=== PATIENT | female | born 1980 | race Caucasian/White ===

== ENCOUNTER 2022-07-04 09:18 | Outpatient (CLI) | payer BC, SELFPAY ==
--- NOTE | 2022-07-04 09:40 | ECG_ITS ---
Measurements Intervals [place] Rate: 87 P: 11 WA: 152 QRS: 15 QRSD: 68 T: 21 QT: 354 QTc: 428 Interpretive Statements SINUS RHYTHM CANNOT RULE OUT SEPTAL INFARCT, AGE INDETERMINATE INFERIOR INFARCT, AGE INDETERMINATE BASELINE ARTIFACT- I, II, III, AVR, AVL, AVF ABNORMAL ECG NO PREVIOUS ECG AVAILABLE FOR COMPARISON Electronically Signed On 07-04-2022 12:43:51 DAY CARE PROVIDER by Bo Sherman D.O.
[2022-07-04 10:08] LABS: Anion Gap 9 mmol/L (8-16); Blood Urea Nitrogen 6 mg/dL (7-17); Carbon Dioxide 29 mmol/L (22-30); Chloride 101 mmol/L (98-107); Estimated Glomerular Filt Rate > 60; Glucose 106 mg/dL (65-110); Potassium 3.2 mmol/L (3.4-5.0); Sodium 139 mmol/L (137-145)
== END 2022-07-04 09:19 | disposition home or self-care (01) ==
LOC: ANHSURGERY 09:25
PROVIDERS: Anesthesiology; Visit Provider Obstetrics & Gynecology
DX: I10 Essential (primary) hypertension (principal); R94.31 Abnormal electrocardiogram [ECG] [EKG]
CPT/HCPCS: 36415; 80048; 93005

== ENCOUNTER 2022-07-10 00:05 | Day surgery (SDC) | payer BC, SELFPAY ==
[2022-07-03 08:17] VITALS: BMI 33.0
--- NOTE | 2022-07-03 08:28 | PC.NURSE ---
Addendum entered by Gayathri Stevenson RN 07/03/22 08:37: PT INSTRUCTED FURTHER NOT TO TAKE VALSARTAN THE MORNING OF SURGERY Original Note: Report to the Outpatient Waiting Room, entrance under the [place] pavilion located off [facility], at time 0600 on date _07/10/22. Planned Procedure Time: 0730_. Time changes happen often and if your time is changed the preop area will call you the afternoon before. - You and your visitor will be asked to self-screen and do not enter if you have any COVID symptoms. - Only one visitor is requested with a max of two and NO children visitors are allowed at this time. - The patient visitor may be requested to leave or wait in car when not with patient due to distancing restrictions. - A mask is optional within the hospital. Patients may have clear liquids (water, carbonated beverages, clear teas, apple juice) until 3 hours prior to surgery with a maximum of 20 ounces. - No food from midnight until time of surgery - Infants may have breast milk until 4 hours before surgery, infant formula 6 hours prior to surgery. - Children will be allowed to drink immediately following surgery. If applicable, please bring a bottle or sippy cup to assist with drinking. Juice, water, soda, and popsicles are readily available. For infants on formula, please bring formula the day of surgery. Pacifiers are allowed. Take the following medications with a SIP of water the morning of surgery: _BUPROPION, ESCITALOPRAM, VALSARTAN___ Medications to discontinue per physician NONE___ Date to take last dose NONE Please no make-up, nail romanian, hairspray, perfume, deodorant, or body powder the day of surgery. No jewelry (including any body piercings) or valuables the day of surgery, leave them at home. Please take a shower or bath the night before, or the morning of, surgery with an antibacterial soap. Wear comfortable, loose fitting clothing. Children are encouraged to wear pajamas. - Jewelry must be removed prior to entering the operating room. Rings and piercings that are not removed may be cut off. - The hospital will not accept responsibility for valuables. - Please leave all valuables, including medications, at home the day of surgery. If you are going home after surgery, a licensed pile driver must drive you home. - NO public transportation without another adult if you receive anesthesia. - We recommend that an adult stay with you for 24 hours following discharge. - We also recommend that you do not drive, make important decision, drink alcoholic beverages, or take any drugs that were not prescribed by your health care provider for at least 24 hours after your discharge time. For Pediatric surgeries, we recommend two adults accompany the child home. Follow any additional instructions given to you from your surgeon. If you or anyone in your household have experienced Covid symptoms in the past week, please notify your surgeon or the nurse liaison at the phone number below for possible testing. Telephone instructions given to PATIENT_and asked if any additional questions and then verbalized understanding. Patient advised to call surgeon office or pre surgery nurse liaison [phone] if any additional questions.
[2022-07-10] VITALS (11 sets, daily range): BP systolic 90–122; BP diastolic 49–84; PULSE 78–100; RESP 13–20; TEMP 36.9; O2SAT 97–100
[2022-07-10] MEDS: ACETAMINOPHEN 500 MG TABLET 1000 MG PO (06:24)
--- NOTE | 2022-07-10 06:46 | WPDANESEPPF ---
Anes - Initial Pre Proc Eval Procedure: Operation Date: 07/10/22 07:30 Proposed Procedures p Laparoscopic Left Ovarian Cystectomy, Hysteroscopy with Irasema Endometrial Ablation - Jania Johnson MD Date/Time: 07/10/22 06:46 Surgeon: Jania Johnson MD Pre Op Diagnosis: Left Ovary Cyst Patient Data Age: 42 Gender: F Height: 1.57 m Weight: 82.7 kg Allergies Allergy/AdvReac Type Severity Reaction Status Date / Time Milk Containing Products Allergy Intermediate Congested Verified 07/10/22 06:17 Home Medications Medication Instructions Recorded Confirmed Type bupropion HCl 150 mg 24 hr tablet, 150 mg PO QAM 07/03/22 07/10/22 History extended release cetirizine 10 mg chewable tablet 10 mg PO DAILY PRN Congestion 07/03/22 07/10/22 History chlorthalidone 50 mg tablet 50 mg PO DAILY 07/03/22 07/10/22 History diphenhydramine HCl 25 mg capsule 25 mg PO DAILY PRN Congestion 07/03/22 07/10/22 History (Benadryl) escitalopram oxalate 10 mg tablet 10 mg PO DAILY 07/03/22 07/10/22 History valsartan 320 mg tablet 325 mg PO DAILY 07/03/22 07/10/22 History Patient hx anesthesia problems: none Family hx anesthesia problems: none Results Review: All pre-operative results and documents have been reviewed as part of the pre-operative evaluation. [facility] Past Medical History Medical History (Updated 07/10/22 @ 06:46 by Dhiraj Dickson MD) HTN (hypertension) Obesity Surgical History Surgical History (Updated 07/10/22 @ 06:46 by Dhiraj Dickson MD) History of section History of cholecystectomy Social History Social History Smoking status: Never smoker Alcohol intake: current Alcohol use details: 2 PER MONTH Substance use: never Living arrangements: with family Anes - Eval Final PreProcedure Day of Procedure 07/10/22 06:46 Patient weight: obese Heart: regular rate and rhythm Lungs: clear to auscultation Airway: Mallampati scale class 1 Neurological: alert and oriented Last oral intake: >/= 8 hours ASA classification: II Emergent: no Anesthetic plan: proceed Anesthesia type and monitoring: general ETT and standard monitoring Results Review: All pre-operative results and documents have been reviewed as part of the pre-operative evaluation. Informed Consent: The patient's anesthetic plan and its attendant risks and benefits were discussed with the patient/family/POA. Questions were solicited and answers provided to the satisfaction of the patient/family/POA.
[2022-07-10] MEDS: KETOROLAC 15 MG/ML VIAL (*BKC) IV PUSH (07:03)
[2022-07-10] MEDS: LACTATED RINGERS 1,000 ML 30 ML IV CONT ×2 (07:03→10:23)
--- NOTE | 2022-07-10 07:16 | WPDHPUPDATE1 ---
History and Physical Update Update Date/Time: 07/10/22 07:16 Left ovarian cystectomy History and Physical has been reviewed, including an updated exam of the patient. There are NO changes in the patient's condition. Risks, benefits, and alternatives have been discussed and questions answered. Patient agrees to proceed with procedure.
--- NOTE | 2022-07-10 10:33 | W.PM.PROC2 ---
Procedure Note - Detailed Date of Procedure 07/10/22 Pre-op Diagnosis Left Ovary Cyst, menorrhagia Post-op Diagnosis Same ( endometriosis -severe, pelvic adhesions) Procedure Performed Diagnostic laparoscopy Surgeon Jania Johnson MD Anesthesia General Indications menorrhagia, pelvic pain Findings severe endometriosis and adhesions throughout the pelvis. Large left ovarian cyst adherent to pelvic sidewall and posterior uterus . Normal vulva vagina cervix, length the endocervical canal, normal appearing endometrium. Description of Procedure The patient was taken to the operating room. She was prepped and draped in the dorsal lithotomy position after induction general anesthesia. A 5 mm incision was made with a scalpel on the abdominal skin in the left upper quadrant of the abdomen. A 5 mm trocar was inserted into the intra-abdominal cavity under direct visualization the scope. In the same fashion a 11 mm left lower quadrant trocar was inserted and a 11 mm infraumbilical trocar was inserted. pelvis was examined the above findings were noted. 1.5 hours of adhesiolysis was performed. This was required to free the ovary from the surrounding structures. The ureter was dissected out from the pelvic brim down to the bladder. No bleeding was difficult to control in the paracervical tissue on the left. The LigaSure cautery was used to make hemostatic. Pressure was reduced in the intra-abdominal cavity for a time. It was reapplied and there was some bleeding and we continued to work on the bleeding. That cycle was repeated and after the reduction of the pneumoperitoneum and the re-application of the pneumoperitoneum this time it was hemostatic. The ovarian cyst was ultimately resected along with the ovary and fallopian tube. It was placed in endobag and taken out the left lower quadrant trocar site. Hematoma was applied to the left adnexa and the paracervical tissue. The pneumo-Peritoneum was then reduced. The endometrial ablation was then performed. The vaginal portion the procedure was then performed. A speculum was placed in the vagina.? Cervix grasped with a tenaculum.? The cervix was dilated to about 1 cm.? The hysteroscope was inserted.? The above findings were noted.? Endometrial curettage was performed with a medium-size curette.? All surfaces of the endometrium were affected by the curettage.? The specimens were collected and sent to pathology.? Measurements were taken of the uterus and cervix.? The uterine length was then entered into the hand piece of the Irasema device.? The device was inserted into the intrauterine cavity.? The array of the device was expanded.? The balloon cuff was inflated.? A good seal was achieved.? The energy and safety cycles were initiated and completed.? The array was collapsed and the instrument was withdrawn after deflating the balloon cuff.? Hysteroscope was reinserted.? Above findings were noted. The hysteroscope was removed. The patient tolerated the procedure well.? The speculum and tenaculum were removed. the pneumoperitoneum was then reapplied and the pelvis was hemostatic. The pneumoperitoneum was reduced. The trocars were removed. Skin was closed with subcuticular 4 micro. The patient's incisions were covered with Dermabond. She was taken recovery room in stable condition. Sponge lap and needle counts were correct x2. Estimated Blood Loss -75.0 Urine Output -150.0 Complications No immediate complications Condition Stable Disposition Same day
[2022-07-10] MEDS: oxyCODONE HCL (*CRX) 5 MG TAB IR PO (11:55)
== END 2022-07-10 13:39 | disposition home or self-care (01) ==
PROVIDERS: PCP Family Medicine; Visit Provider Obstetrics & Gynecology
PROC: 0UDB8ZZ Extraction of Endometrium, Via Natural or Artificial Opening Endoscopic (ICD-10-PCS; CPT 58558; principal; 2022-07-10 07:30)
PROC: 0U5B8ZZ Destruction of Endometrium, Via Natural or Artificial Opening Endoscopic (ICD-10-PCS; CPT 58563; 2022-07-10 07:30)
DX: N92.0 Excessive and frequent menstruation with regular cycle (principal); N73.6 Female pelvic peritoneal adhesions (postinfective); N83.202 Unspecified ovarian cyst, left side; N80.30 Endometriosis of pelvic peritoneum, unspecified; N80.102 Endometriosis of left ovary, unspecified depth; N80.202 Endometriosis of left fallopian tube, unspecified depth; I10 Essential (primary) hypertension; E66.9 Obesity, unspecified; Z68.33 Body mass index [BMI] 33.0-33.9, adult
CPT/HCPCS: 58661; 58563; 88305; A9270; J1100; J1885; J2250; J2370; J2405; J2704; J2710; J3010; J7030; J7120

== ENCOUNTER 2025-01-27 11:18 | Outpatient (CLI) | payer BC, SELFPAY ==
--- OUTSIDE RECORDS SUMMARY | 2025-01-27 11:26 | XMS_ITS | Clinical Summary ---
Author Organization [facility] [place] Address [address] [place] [address] Phone Care Team Providers Care Labor Supervisor Name Role Phone Javier Bailon MD Primary Care Provider [phone] Allergies No known active allergies Medications No known medications Active Problems Problem Noted Date Diagnosed Date Family history of breast cancer 06/06/2010 Family history of ovarian cancer 06/06/2010 Transfusion of, blood Kidney stone Family History Medical History Relation Name Comments Other Maternal Grandfather diabete s Stroke Maternal Grandfather Stroke Maternal Grandmother Breast Cancer Other 1 (p) great aunt Ovarian Cancer Other 1 (p) great aunt Breast Cancer Other 2 (p) 2nd cousin paternal 2nd cousin 40s Breast Cancer Other 3 paternal 2nd c ousin 30s Lung Cancer Paternal Grandfather Other Paternal Grandmother diabete s Relation Name Status Comments Maternal Grandfather Maternal Grandmother Other 1 (p) great aunt Other 2 (p) 2nd cousin Alive Other 3 Alive Paternal Grandfather Paternal Grandmother Social History Tobacco Use Types Packs/Day Years Used Date Smoking Tobacco: Never Alcohol Use Standard Drinks/Week Comments Yes 0 (1 standard drink = 0.6 oz pur e alcohol) rarely Comments No Sex and Gender Information Value Date Recorded Sex Assigned at Not on file Legal Sex Female 5:57 AM HOT BOX OPERATOR Gender Identity Not on file Sexual Orientation Not on file Occupation Industry Job Start Date Job End Date Not on file Not on file Not on file Not on file Last Filed Vital Signs Vital Sign Reading Time Taken Comments Blood Pressure 124/66 06/06/2010 10:26 AM HOT BOX OPERATOR Pulse - - Temperature - - Respiratory Rate - - Oxygen Saturation - - Inhaled Oxygen Concentration - - Weight 73.5 kg (162 lb) 06/06/2010 10:26 AM HOT BOX OPERATOR Height 157.5 cm (5' 2) 06/06/2010 10:26 AM HOT BOX OPERATOR Body Mass Index 29.63 06/06/2010 10:26 AM HOT BOX OPERATOR Plan of Treatment Health Maintenance Due Date Last Done Comments HPV VACCINES (1 - 3-dose series) 1997 DTAP/TDAP/TD VACCINES (1 - Tdap) 2001 HEPATITIS B VACCINES (1 of 3 - 19+ 3-dose series) 01/29 HPV/Cotest (21-29) 2003 CERVICAL CANCER SCREENING 02/24/2012 HPV/Cotest (30-65) 02/24/2012 PAP SMEAR 02/24/2012 BREAST CANCER SCREENING 2022 06/06/2010 INFLUENZA VACCINE (#1) 2025 Procedures Procedure Name Priority Date/Time Associated Diagnosis Comments MAMMO DIAGNOSTIC BILATERAL W OR WO CAD Routine 06/06/2010 11:34 AM HOT BOX OPERATOR Diffuse cystic mastopathy Family history of breast cancer from Last 3 Months or Most Recently Relevant to Health Maintenance Results * MAMMO DIGITAL DIAG BILAT (06/06/2010 11:34 AM HOT BOX OPERATOR) Anatomical Region Laterality Modality Breast Bilateral Mammography Narrative 06/08/2010 8:46 AM HOT BOX OPERATOR BILATERAL FULL FIELD DIGITAL DIAGNOSTIC MAMMOGRAMS WITH COMPUTER AIDED DETECTION, 06/06/2010 History: Palpable abnormality in the left breast. Technique: Bilateral full field digital diagnostic mammograms were obtained. CAD was utilized. Comparison is made with the previous ultrasound from Imaging [facility] dated April 2010. Breast Composition: Heterogeneously dense, which lowers the sensitivity of mammography. Findings: No dominant masses, areas of asymmetry or suspicious clustered microcalcifications are identified within either breast. CAD was utilized. OVERALL ASSESSMENT: BI-RADS Category: 1, negative. Recommendation: Clinical followup is recommended for the patient's palpable abnormality in the left breast which has no mammographic correlate. Procedure Note Claudia Reeves - 06/08/2010 BILATERAL FULL FIELD DIGITAL DIAGNOSTIC MAMMOGRAMS WITH COMPUTER AIDEDDETECTION, 06/06/2010 History: Palpable abnormality in the left breast. Technique: Bilateral full field digital diagnostic mammograms wereobtained. CAD was utilized. Comparison is made with the [facility]rasound from [facility] dated April 2010. Breast Composition: Heterogeneously dense, which lowers the sensitivity ofmammography. Findings: No dominant masses, areas of asymmetry or suspicious clusteredmicrocalcifications are identified within either breast. CAD was utilized. OVERALL ASSESSMENT: BI-RADS Category: 1, negative. Recommendation: Clinical followup is recommended for the patient'spalpable abnormality in the left breast which has no mammographiccorrelate. us Vaishali Hicks MD MAMMO ORDERABLES Final Result from Last 3 Months or Most Recently Relevant to Health Maintenance Insurance [facility] BLUE ACCESS/TRUE BLUE PPO Care Teams Labor Supervisor Relationship Specialty Start Date End Date Javier Bailon MD [address] [place] [id number] PCP - General 06/20/15
--- OUTSIDE RECORDS SUMMARY | 2025-01-27 11:26 | XMS_ITS | Clinical Summary ---
Author Organization [facility] Address [address] [place] [address] Care Team Providers Care River Driver Name Role Phone Michelle Lassiter MD Primary Care Provider [phone] Social History Tobacco Use Types Packs/Day Years Used Date Smoking Tobacco: Never Assessed Comments Unknown Sex and Gender Information Value Date Recorded Sex Assigned at Female 07/21/2024 12:16 PM OCCUPATIONAL THERAPY DEPARTMENT CHAIR Legal Sex Female 5:55 PM CDT Gender Identity Not on file Sexual Orientation Not on file Plan of Treatment Health Maintenance Due Date Last Done Comments Cervical Cancer Screening Pa p Smear (Age 30 to 64) Every 3 Years 1982 Annual Physical 1985 Hepatitis C 02/24/2000 DTaP, Tdap and Td Vaccines ( 1 - Tdap) 2001 Hepatitis B Vaccines (1 of 3 - 19+ 3-dose series) 2001 HPV Vaccines (1 - 3-dose SCD M series) 2009 Cervical Cancer Screening Pa p with HPV Testing (Age 30 to 64) Every 5 Years 02/24/2012 Cervical Cancer Screening with HPV 02/24/2012 Mammogram Screening 2022 COVID-19 Vaccine (2023-2 5 season) 2024 Meningococcal B Vaccine Aged Out No l onger eligible based on patient's age to complete this topic Meningococcal Vaccine Aged Out No magali marie eligible based on patient's age to complete this topic Pneumococcal Vaccine: Pediat rics (0 to 5 Years) and At-Risk Patients (6 to 49 Years) Aged Out No longer eligible b ased on patient's age to complete this topic RSV Immunizations Under 20 Months Aged Out No longer eligible based on patient's age to complete this topic Insurance [facility] Care Teams River Driver Relationship Specialty Start Date End Date Michelle Lassiter MD [address] [place] [phone] PCP - General FAMILY PRACTICE 07/06/20
--- NOTE | 2025-01-27 11:38 | ECG_ITS ---
Test Date: 2025-01-27 11:52:24 Measurements Intervals [place] Rate: 94 P: 29 TN: 176 QRS: 23 QRSD: 80 T: 43 QT: 380 QTc: 477 Interpretive Statements SINUS RHYTHM LOW QRS VOLTAGE IN PRECORDIAL LEADS CANNOT R/O SEPTAL INFARCT, AGE INDETERMINATE INFERIOR INFARCT, AGE INDETERMINATE BORDERLINE ST-T WAVE ABNORMALITY- HIGH LATERAL LEADS BASELINE ARTIFACT- I, II, III, AVR, AVL, V3-V6 ABNORMAL ECG No previous ECG available for comparison Electronically Signed On 01-28-2025 06:27:44 CDT by Bo Sherman D.O.
[2025-01-27 12:21] LABS: Alanine Aminotransferase 35 U/L (6-35); Albumin Level 4.4 g/dL (3.5-5.1); Alkaline Phosphatase 61 U/L (38-126); Anion Gap 10 mmol/L (4-12); Aspartate Amino Transferase 38 U/L (14-36); Bilirubin,Total 0.5 mg/dL (0.2-1.3); Blood Urea Nitrogen 11 mg/dL (7-17); Calcium 9.0 mg/dL (8.4-10.2); Carbon Dioxide 23 mmol/L (22-30); Chloride 101 mmol/L (98-107); Estimated Glomerular Filt Rate > 60; Glucose 150 mg/dL (65-110); Potassium 3.0 mmol/L (3.4-5.0); Sodium 134 mmol/L (137-145); Total Protein 7.2 g/dL (6.3-8.2)
== END 2025-01-27 11:19 | disposition home or self-care (01) ==
LOC: ANHSURGERY 11:23
PROVIDERS: PCP Physician Assistant; Visit Provider Obstetrics & Gynecology
DX: R10.2 Pelvic and perineal pain (principal); Z79.899 Other long term (current) drug therapy; I10 Essential (primary) hypertension
CPT/HCPCS: 36415; 80053; 86850; 86900; 86901; 93005

== ENCOUNTER 2025-02-02 02:12 | Day surgery (SDC) | payer BC, SELFPAY ==
[2025-01-26 08:58] VITALS: BMI 36.6
--- NOTE | 2025-01-26 09:00 | PC.NURSE ---
Report to the Outpatient Waiting Room, entrance under the green pavilion located off [facility], at time _0830_ on date _[id number]_. Planned Procedure Time: _1030_.? Time changes happen often and if your time is changed the preop area will call you the afternoon before. - You and your visitor will be asked to self-screen and do not enter if you have any COVID symptoms. Please call surgeon if you need to reschedule. - A mask is optional within the hospital at this time. Patients may have clear liquids (water, carbonated beverages, clear teas, apple juice) until 3 hours prior to surgery with a maximum of 20 ounces. - No food from midnight until time of surgery and no smoking, or chewing tobacco (or any form of nicotine). No chewing gum, candy or mints. Take only the following medications with a SIP of water on the morning of surgery: ___Bupropion, Escitalopram and if needed Hydrocodone for pain.____ DO NOT STOP ANY OF YOUR OTHER PRESCRIPTION MEDICATIONS PRIOR TO SURGERY EXCEPT THE FOLLOWING Hold all vitamins and supplements for 3 days per anesthesiologist. Medications to discontinue per physician Date to take last dose Please no make-up, nail setswana, hairspray, perfume, deodorant, or body powder the day of surgery.? No jewelry (including any body piercings) or valuables the day of surgery, leave them at home.? Please take a shower or bath the night before, or the morning of, surgery with an antibacterial soap.? Wear comfortable, loose fitting clothing.? - Jewelry must be removed prior to entering the operating room.? Rings and piercings that are not removed may be cut off. - The hospital will not accept responsibility for valuables.? - Please leave all valuables, including medications, at home the day of surgery. If you are going home after surgery, a licensed truck driver rubbish collector must drive you home.? - NO public transportation without another adult if you receive anesthesia. - We recommend that an adult stay with you for 24 hours following discharge. - We also recommend that you do not drive, make important decision, drink alcoholic beverages, or take any drugs that were not prescribed by your health care provider for at least 24 hours after your discharge time. Follow any additional instructions given to you from your surgeon. Telephone instructions given to __Kristan___and asked if any additional questions and then verbalized understanding. Patient advised to call surgeon office or pre surgery nurse liaison [phone] if any additional questions.
[2025-02-02] VITALS (14 sets, daily range): BP systolic 105–132; BP diastolic 64–92; PULSE 64–87; RESP 14–20; TEMP 36.2–36.7; O2SAT 96–100
--- OUTSIDE RECORDS SUMMARY | 2025-02-02 02:17 | XMS_ITS | Clinical Summary ---
Author Organization [facility] Address [facility] [place] [address] Care Team Providers Care Motion Picture Equipment Machinist Name Role Phone Michelle Lassiter MD Primary Care Provider [phone] Social History Tobacco Use Types Packs/Day Years Used Date Smoking Tobacco: Never Assessed Comments Unknown Sex and Gender Information Value Date Recorded Sex Assigned at Female 07/21/2024 12:16 PM DELIVERY ROUTE DRIVER Legal Sex Female 5:55 PM CDT Gender [...] patient's age to complete this topic Insurance [facility] Care Teams Motion Picture Equipment Machinist Relationship Specialty Start Date End Date Michelle Lassiter MD [address] [place] [phone] PCP - General FAMILY PRACTICE 07/06/20
--- OUTSIDE RECORDS SUMMARY | 2025-02-02 02:17 | XMS_ITS | Clinical Summary ---
Author Organization [facility] on [place] Address [address] [place] [address] Phone Care Team Providers Care Global Program Manager Name Role Phone Javier Bailon MD Primary Care Provider [phone] Allergies No known active allergies Medications No [...] on file Legal Sex Female 5:57 AM TRIAL LAWYER Gender Identity Not on file Sexual Orientation Not on file Occupation Industry Job Start Date Job End Date Not on file Not on file Not on file Not on file Last Filed Vital Signs Vital Sign Reading Time Taken Comments Blood Pressure 124/66 06/06/2010 10:26 AM TRIAL LAWYER Pulse - - Temperature - - Respiratory Rate - - Oxygen Saturation - - Inhaled Oxygen Concentration - - Weight 73.5 kg (162 lb) 06/06/2010 10:26 AM TRIAL LAWYER Height 157.5 cm (5' 2) 06/06/2010 10:26 AM TRIAL LAWYER Body Mass Index 29.63 06/06/2010 10:26 AM TRIAL LAWYER Plan of Treatment Health Maintenance Due Date [...] OR WO CAD Routine 06/06/2010 11:34 AM TRIAL LAWYER Diffuse cystic mastopathy Family history of breast cancer from Last 3 Months or Most Recently Relevant to Health Maintenance Results * MAMMO DIGITAL DIAG BILAT (06/06/2010 11:34 AM TRIAL LAWYER) Anatomical Region Laterality Modality Breast Bilateral Mammography Narrative 06/08/2010 8:46 AM TRIAL LAWYER BILATERAL FULL FIELD DIGITAL DIAGNOSTIC MAMMOGRAMS WITH COMPUTER AIDED DETECTION, 06/06/2010 History: Palpable abnormality in the left breast. Technique: Bilateral full field digital diagnostic mammograms were obtained. CAD was utilized. Comparison is made with the previous ultrasound from Imaging [facility] dated April 2010. Breast Composition: Heterogeneously [...] Comparison is made with the [facility]ultrasound from [facility] dated April 2010. Breast Composition: Heterogeneously [...] Most Recently Relevant to Health Maintenance Insurance [facility] BLUE ACCESS/TRUE BLUE PPO Care Teams Global Program Manager Relationship Specialty Start Date End Date Javier Bailon MD [address] [place] [phone] PCP - General 06/20/15
--- NOTE | 2025-02-02 06:48 | WPDANESEPPF ---
Anes - Initial Pre Proc Eval Procedure: Operation Date: 02/02/25 10:30 Proposed Procedures p Robotic Assisted Hysterectomy with Bilateral Salpingo-oophorectomy - Rohit Johnson MD Date/Time: 02/02/25 06:48 Surgeon: Rohit Johnson MD Pre Op Diagnosis: Pelvic Pain Patient Data Age: 44 Gender: F Height: 1.57 m Weight: 90.9 kg Allergies Allergy/AdvReac Type Severity Reaction Status Date / Time Milk Containing Products Allergy Intermediate Congested Verified 02/02/25 09:10 (Dairy) (Milk Containing Products) Home Medications ?Medication ?Instructions ?Recorded ?Confirmed ?Type bupropion HCl 150 mg 24 hr tablet, 150 mg PO QAM 07/03/22 02/02/25 History extended release cetirizine 10 mg chewable tablet 10 mg PO DAILY PRN Congestion 07/03/22 01/26/25 History chlorthalidone 50 mg tablet 50 mg PO DAILY 07/03/22 02/02/25 History diphenhydramine HCl 25 mg capsule 25 mg PO DAILY PRN Congestion 07/03/22 01/26/25 History (Benadryl) escitalopram oxalate 10 mg tablet 10 mg PO DAILY 07/03/22 02/02/25 History valsartan 320 mg tablet 320 mg PO DAILY 07/03/22 02/02/25 History hydrocodone 5 mg-acetaminophen 325 1 tablet PO Q4H PRN pain #20 tabs 07/10/22 01/26/25 Rx mg tablet montelukast 10 mg tablet 10 mg PO HS 01/26/25 02/02/25 History Patient hx anesthesia problems: none Family hx anesthesia problems: none Results Review: All pre-operative results and documents have been reviewed as part of the pre-operative evaluation. [facility] Past Medical History Medical History (Updated 02/02/25 @ 09:16 by Israel Damon DO) Pre-diabetes HTN (hypertension) Obesity Surgical History Surgical History (Updated 07/10/22 @ 06:46 by Dhiraj Dickson MD) History of section History of cholecystectomy Social History Social History Smoking status: Never smoker Alcohol intake: current Alcohol use details: 2 PER MONTH Substance use: never Living arrangements: with family Spiritual care concerns: No Anes - Eval Final PreProcedure Day of Procedure 02/02/25 06:48 Patient weight: obese Heart: regular rate and rhythm Lungs: clear to auscultation Airway: Mallampati scale class II Neurological: alert and oriented Last oral intake: >/= 8 hours ASA classification: III Emergent: no Anesthetic plan: proceed Anesthesia type and monitoring: general ETT and standard monitoring Results Review: All pre-operative results and documents have been reviewed as part of the pre-operative evaluation. Informed Consent: The patient's anesthetic plan and its attendant risks and benefits were discussed with the patient/family/POA. Questions were solicited and answers provided to the satisfaction of the patient/family/POA.
[2025-02-02] MEDS: ACETAMINOPHEN 500 MG TABLET 1000 MG PO ×3 (08:55→23:40)
[2025-02-02] MEDS: LACTATED RINGERS 1,000 ML 30 ML IV CONT ×2 (09:00→13:12)
[2025-02-02] MEDS: KETOROLAC 15 MG/ML VIAL (*BKC) IV PUSH (09:05)
[2025-02-02 09:13] LABS: BEDSIDEPREGUCG Negative (Negative)
--- NOTE | 2025-02-02 09:56 | WPDHPUPDATE1 ---
History and Physical Update Update Date/Time: 02/02/25 09:56 History and Physical has been reviewed, including an updated exam of the patient. There are NO changes in the patient's condition. Risks, benefits, and alternatives have been discussed and questions answered. Patient agrees to proceed with procedure.
[2025-02-02] MEDS: ceFAZolin 2 GM in SODIUM CHLORIDE 0.9% IV 50 ML 100 ML IVPB (10:00)
--- NOTE | 2025-02-02 12:22 | S_PTH ---
PATIENT: Kristan Monzon LOC: [facility] U#:[id number] AGE/SX: 44/F ROOM: RE02/02/[address]: Rohit Johnson MD : 1980 BED: DIS: 02/03/2025 SPEC #: [id number] RECD: 02/02/25 14:24 STATUS: JAZMIN REDagoberto #: [id number] FARA: 02/02/25 12:[address]: Rohit Johnson DEPT: [facility] Surgical RECD BY: Sylwia Brown ENTERED: 02/02/25 14:24 SP TYPE: Surgical OTHR DR: Kimberly Beach, PAJohn Tissues: A - Uterus Procedures: Hematoxylin and Eosin Stain Gross and Microscopic Level 5
[2025-02-02] MEDS: METHYLENE BLUE 0.5% INJ 10 ML AMPULE IRRIGATION (12:34)
--- NOTE | 2025-02-02 13:19 | P.OP_ITS ---
Procedure Note - Detailed Date of Procedure 02/02/25 Pre-op Diagnosis Pelvic Pain Post-op Diagnosis Same (Endometriosis) Procedure Performed Robot assisted Total hysterectomy with bilateral salpingectomy. Adhesiolysis- 1.5 hours Surgeon Rohit Johnson MD Anesthesia General Indications heavy vaginal bleeding, pelvic pain Findings Dense adhesions of the bilateral adnexa, parametria and posterior cul-de-sac. Endometrial implants throughout the pelvis. Absent left tube and ovary. Right tube and ovary with scarring and endometriosis. Description of Procedure This patient was taken to the operating room. She was prepped and draped in the dorsal lithotomy position after induction of general anesthesia. The uterine manipulator and Nellie cup were placed. This was done with a speculum and tenaculum. The speculum was placed. The cervix was grasped with a tenaculum. The stay sutures were placed at 3 and 9:00 a.m.. The stay sutures of 0 Vicryl were tied to the appropriately Size scope after it was slipped around the cervix.. The tip of the THEODORE manipulator was placed in the intrauterine cavity. The cup was slid into place around the cervix and into the fornices. It was locked into place. The sutures were then wrapped around the handle and tied under tension. A 8 mm skin incision was made in the left upper quadrant the abdomen. a 5 mm Visiport trocar was inserted into abdominal cavity and pneumoperitoneum was achieved. A 8 mm supraumbilical incision was made and a 8 mm trocar was inserted into the intrauterine cavity under direct visualization of the scope. an 8 mm incision was made in the right upper quadrant of the abdomen and an 8 mm robotic trocar was placed the inter uterine cavity under direct visualization the scope. An 11 mm trocar was inserted in the right upper quadrant of the abdomen rectal is a cystoscope after an incision was made there as well. The robot was docked. Electronic Orientation of the robot was performed. 1.5 hour adhesiolysis was performed with sharp and blunt dissection using cautery and vessel sealer. This was done throughout the pelvis and different portions of the case. Bilateral ureteral lysis was performed. This was done from the pelvic brim down to the uterine artery. This was done with careful dissection using sharp and blunt dissection.Bilateral salpingo-oophorectomy was performed. The bilateral infundibulopelvic ligaments were cauterized thoroughly and transected after visualization of the ureter passing over the pelvic brim. In stepwise fashion around the ovary the mesosalpinx was cauterized transected. The Fallopian tube tissue/ mesosalpinx was cauterized transected a stepwise fashion medially to the cornua of the uterus. the tube was transected at the cornua and cauterized thoroughly. The bilateral tubes and ovaries were taken out through the large air lock port. Then In a stepwise fashion along the lateral aspects of the uterus the round ligament and broad ligaments were cauterized transected down to the level of the uterine arteries. A bladder flap was created in the bladder was moved distally to the end of the cervix and over the Nellie cup. The bilateral uterine arteries were cauterized and transected. Colpotomy was then performed. In a circumferential fashion the vagina was transected using unipolar cautery. The incision was made down on the Nellie cup. The uterus and cervix were taken out through the vagina. A pneumo occluder was placed in the vagina. The vaginal cuff was closed with a 0 V lock suture in a running fashion. The pelvis was irrigated with copious amounts antibiotic irrigation. The ureters were again examined and found to be intact and flowing freely under the uterine arteries into the bladder. The bladder was intact. It was examined directly. Cystoscopy was performed after administration of methylene blue. The cystoscope was inserted. Bladder was distended with fluid. The ureteric meatus was observed bilaterally. Blue fluid was seen to egress bilaterally. The bladder was drained and the cystoscope was withdrawn. The vagina was irrigated with Betadine solution after removal of the Pneumo occluder. the trocars were removed after the robot was undocked. The skin was closed with subacute or Dermabond. The patient was taken to recovery room. She was stable condition. Sponge lap and needle counts were correct x2. Estimated Blood Loss 125 Urine Output 800 Drains Yes Packing No Pathology Yes Complications No immediate complications Condition Stable Disposition Floor
[2025-02-02] MEDS: fentaNYL CITRATE INJ (*CRX) 100 MCG/2 ML VIAL 25 MCG IV PUSH ×2 (13:59→14:02)
--- NOTE | 2025-02-02 15:00 | ADMGEN ---
This patient, Kristan Monzon, was admitted to 2 Medical Room 240-. Patient/family oriented to hospital policies and general routines including ID bracelet, bed and alarms, visiting hours, pain management, procedures, bathroom and other care routines, personal items, smoking policy, room service/diet, and visiting hours. Information on how to activate the Rapid Response Team has been discussed. Patient/Family are encouraged to report perceived risks to care and to ask questions if they do not understand what they are told or what they should do.
[2025-02-02] MEDS: DEXTROSE 5%/0.45% SOD CHL 1,000 ML 125 ML IV CONT (15:46)
[2025-02-02] MEDS: SIMETHICONE 80 MG TAB.CHEW PO (16:16)
[2025-02-02] MEDS: KETOROLAC 30 MG/ML VIAL (*BKC) IV PUSH ×2 (17:14→23:40)
[2025-02-02] MEDS: MONTELUKAST SODIUM 10 MG TABLET PO (20:17)
[2025-02-02] MEDS: HYDROcodone/acetaminophen (*CRX) 5-325 MG TABLET 1 TAB PO (20:22)
[2025-02-03 00:22] VITALS: BP 107/53; PULSE 88; RESP 16; TEMP 36.5; O2SAT 94
[2025-02-03] MEDS: KETOROLAC 30 MG/ML VIAL (*BKC) IV PUSH (06:12)
[2025-02-03] MEDS: ACETAMINOPHEN 500 MG TABLET 1000 MG PO ×2 (06:12→11:14)
[2025-02-03 06:40] VITALS: BP 105/59; PULSE 61; RESP 16; TEMP 36.6; O2SAT 97
[2025-02-03] MEDS: SIMETHICONE 80 MG TAB.CHEW PO ×2 (07:54→11:15)
[2025-02-03] MEDS: DOCUSATE SODIUM 100 MG CAPSULE PO (07:55)
[2025-02-03 07:57] VITALS: RESP 16; O2SAT 97
[2025-02-03 11:00] VITALS: BP 109/64; PULSE 84; RESP 16; TEMP 36.4; O2SAT 98
[2025-02-03] MEDS: IBUPROFEN 600 MG TABLET PO (11:14)
[2025-02-03] MEDS: ESCITALOPRAM OXALATE 10 MG TABLET PO (11:16)
[2025-02-03] MEDS: buPROPion HCL XL (24 HR) 150 MG TABCR PO (11:16)
--- NOTE | 2025-02-03 11:46 | PM.GYNPNOP ---
[employer] - A/P Postoperative Procedures: Procedures Operation Date: 02/02/25 10:30 Actual Procedure Side Surgeon p Robotic Assisted Hysterectomy with Right Salpingo-oophorectomy, Cystoscopy Right Rohit Johnson MD Postoperative day: 1 Postoperative status: doing well Postoperative plan: see orders Time Spent With Patient Time: Total time spent is greater than 50% in coordination of care (as documented) at patient's floor/unit and/or counseling patient: Time with patient: less than 15 minutes [employer]- PN:Subj Post-Op Subjective Date/time seen: 02/03/25 11:46 Subjective: patient reports feeling better, patient has no complaints and pain is well controlled Exam Const: General: healthy appearing, comfortable and no acute distress Resp: Auscultation: clear to auscultation bilaterally, no rales, no rhonchi and no wheezes Cardio: Rate: regular rate Heart sounds: no click, no murmurs and no rubs GI: Inspection: non-distended Auscultation: normal bowel sounds Extrem: General: normal to inspection, no pedal edema and no calf tenderness [employer] - PN: Obj Data Vital Signs Vital Signs: Vital Signs - 24 hr 02/02/25 13:12 02/02/25 13:25 02/02/25 13:40 Temperature 97.6 F Pulse Rate 75 80 74 Respiratory Rate 20 18 16 Blood Pressure 105/67 110/73 111/77 Pulse Oximetry 100 100 99 Oxygen Delivery Simple Face Mask Simple Face Mask Simple Face Mask Oxygen Flow Rate 6 6 6 02/02/25 13:55 02/02/25 14:10 02/02/25 14:25 Temperature Pulse Rate 79 66 71 Respiratory Rate 18 16 16 Blood Pressure 122/71 107/66 116/71 Pulse Oximetry 96 96 97 Oxygen Delivery Room Air Nasal Cannula Nasal Cannula Oxygen Flow Rate 2 2 02/02/25 14:40 02/02/25 14:48 02/02/25 15:00 Temperature 97.5 F L Pulse Rate 67 64 Respiratory Rate 18 16 16 Blood Pressure 119/75 117/65 Pulse Oximetry 98 98 97 Oxygen Delivery Nasal Cannula Nasal Cannula Oxygen Flow Rate 2 2 02/02/25 15:03 02/02/25 15:33 02/02/25 16:33 Temperature 97.5 F L Pulse Rate 69 67 67 Respiratory Rate 16 16 14 Blood Pressure 113/64 117/72 117/70 Pulse Oximetry 97 99 98 Oxygen Delivery Oxygen Flow Rate 02/02/25 20:35 02/03/25 00:22 02/03/25 06:40 Temperature 98.0 F 97.7 F 97.9 F Pulse Rate 72 88 61 Respiratory Rate 16 16 16 Blood Pressure 116/65 107/53 L 105/59 L Pulse Oximetry 96 94 97 Oxygen Delivery Oxygen Flow Rate 02/03/25 07:57 02/03/25 11:00 Temperature 97.6 F Pulse Rate 84 Respiratory Rate 16 16 Blood Pressure 109/64 Pulse Oximetry 97 98 Oxygen Delivery Room Air Oxygen Flow Rate Intake/Output Intake/Output: Intake & Output 01/31/25 02/01/25 02/02/25 02/03/25 23:59 23:59 23:59 23:59 Intake Total 540 670 Output Total 2370 500 Balance -1830 170 Meds/Results Medications: Active Medications Generic Name Dose Route Start Last Admin Trade Name Freq PRN Reason Stop Dose Admin Acetaminophen 1,000 mg 02/02/25 18:00 02/03/25 11:14 Acetaminophen 500 Mg Tablet PO 1,000 mg Q6HR KARLA Administration Hydrocodone Bitart/Acetaminophen 1 tab 02/02/25 14:48 02/02/25 20:22 Hydrocodone/Acetaminophen (*Crx) 5-325 Mg Tablet PO 1 tab Q4H PRN Administration PAIN RATED 4-6 Bupropion HCl 150 mg 02/02/25 15:05 02/03/25 11:16 Bupropion Hcl Xl (24 Hr) 150 Mg Tabcr PO 150 mg QAM KARLA Administration Chlorthalidone 50 mg 02/02/25 15:05 02/03/25 11:16 Chlorthalidone 25 Mg Tablet PO Not Given DAILY KARLA Diphenhydramine HCl 25 mg 02/02/25 14:48 Diphenhydramine Hcl Cap 25 Mg Capsule PO DAILY PRN Congestion Docusate Sodium 100 mg 02/02/25 17:00 02/03/25 07:55 Docusate Sodium 100 Mg Capsule PO 100 mg BID KARLA Administration Escitalopram Oxalate 10 mg 02/02/25 15:10 02/03/25 11:16 Escitalopram Oxalate 10 Mg Tablet PO 10 mg DAILY KARLA Administration Ibuprofen 600 mg 02/03/25 12:00 02/03/25 11:14 Ibuprofen 600 Mg Tablet PO 600 mg Q6HR KARLA Administration Loratadine 10 mg 02/02/25 15:05 Loratadine 10 Mg Tablet PO DAILY PRN Congestion Miscellaneous Information 1 each 02/03/25 00:01 Home [place] And Oxycodone--Duplicate Prn Indications XX 03/05/25 00:00 CLARIFY KARLA Montelukast Sodium 10 mg 02/02/25 21:00 02/02/25 20:17 Montelukast Sodium 10 Mg Tablet PO 10 mg HS KARLA Administration Naloxone HCl 0.1 mg 02/02/25 14:48 Naloxone Hcl 0.4 Mg/Ml Vial IV PUSH Q2M PRN Respiratory rate less than 10 Ondansetron HCl 4 mg 02/02/25 14:48 Ondansetron Inj 4 Mg/2 Ml Vial IV PUSH Q6H PRN Nausea And Vomiting Oxycodone HCl 5 mg 02/02/25 14:48 Oxycodone Hcl (*Crx) 5 Mg Tab Ir PO Q4H PRN Pain Rated 4-6 Oxycodone HCl 10 mg 02/02/25 14:48 Oxycodone Hcl (*Crx) 5 Mg Tab Ir PO Q6H PRN Pain Rated 7-10 Simethicone 80 mg 02/02/25 17:00 02/03/25 11:15 Simethicone 80 Mg Tab.Chew PO 80 mg TIDWM [facility] Administration Valsartan 320 mg 02/03/25 09:00 02/03/25 07:55 Valsartan 160 Mg Tablet PO Not Given DAILY [facility]
== END 2025-02-03 12:40 | disposition home or self-care (01) ==
LOC: ANHSURGERY 08:24 → ANH2MED 15:00
PROVIDERS: PCP Physician Assistant; Visit Provider Obstetrics & Gynecology
PROC: (CPT 58571; principal; 2025-02-02 10:30)
DX: N83.01 Follicular cyst of right ovary (principal); N80.03 Adenomyosis of the uterus; D25.1 Intramural leiomyoma of uterus; N88.8 Other specified noninflammatory disorders of cervix uteri; N80.201 Endometriosis of right fallopian tube, unspecified depth; N73.6 Female pelvic peritoneal adhesions (postinfective); G89.18 Other acute postprocedural pain; I10 Essential (primary) hypertension; R73.03 Prediabetes; J45.909 Unspecified asthma, uncomplicated; F41.9 Anxiety disorder, unspecified; N80.9 Endometriosis, unspecified; E66.9 Obesity, unspecified; Z68.37 Body mass index [BMI] 37.0-37.9, adult; Z79.899 Other long term (current) drug therapy; Z79.51 Long term (current) use of inhaled steroids; Z79.891 Long term (current) use of opiate analgesic; Z98.890 Other specified postprocedural states; Z90.49 Acquired absence of other specified parts of digestive tract; Z80.8 Family history of malignant neoplasm of other organs or systems; Z80.1 Family history of malignant neoplasm of trachea, bronchus and lung; Z80.3 Family history of malignant neoplasm of breast; Z82.49 Family history of ischemic heart disease and other diseases of the circulatory system
CPT/HCPCS: 58571; S2900; 88307; J0690; A9270; J1100; J1171; J1885; J2003; J2250; J2405; J2704; J3010; J7030; J7120; Q9968